=== PATIENT | female | born 1955 | race African-American/Black ===

== ENCOUNTER 2020-08-03 13:05 | Emergency (ER) | payer MEDICARE, OTHER, SELFPAY ==
--- NOTE | ~2020-08-03 | XR_ITS ---
EXAMINATION: XR ribs LT 2V INDICATION: Left-sided rib pain TECHNIQUE: 3 views of the left ribs were obtained. COMPARISON: 05/30/2016 FINDINGS: No displaced rib fracture is identified. There is no pleural effusion or pneumothorax. The visualized portions of the thorax are unremarkable. Surgical clips in the right upper quadrant are scottie ernandezy from prior cholecystectomy. IMPRESSION: 1. No acute cardiopulmonary abnormality or evidence of displaced rib fracture. Reviewed, dictated and finalized at location B.
[2020-08-03 13:17] VITALS: BP 114/63; PULSE 81; RESP 16; TEMP 36.5; O2SAT 97
--- NOTE | 2020-08-03 14:28 | ED.GENADULT ---
HPI - General Adult General Chief complaint: Trauma Stated complaint: fell left side pain Time Seen by Provider: 08/03/20 14:20 Source: patient and RN notes reviewed Mode of arrival: ambulatory Limitations: no limitations History of Present Illness HPI narrative: Patient presents today complaining of left lateral rib pain. She tripped over the wheel on her walker 2 days ago, fell, and struck the side of her ribs on the edge of her bathtub. Pain increases with movement, deep breath, and coughing. She currently rates her pain 7/10 and has been taking Advil without relief. This pain is decreased from 9/10 2 days ago. Denies shortness of breath. MD complaint: Left rib pain Related Data Home Medications Medication Instructions Recorded Confirmed Lexapro 08/03/20 Lunesta 08/03/20 alprazolam 08/03/20 amitriptyline 08/03/20 amlodipine 08/03/20 atorvastatin 08/03/20 bupropion HCl mg PO 08/03/20 epinephrine 08/03/20 escitalopram oxalate mg 08/03/20 estradiol mg 08/03/20 eszopiclone mg 08/03/20 rosuvastatin mg 08/03/20 Allergies Allergy/AdvReac Type Severity Reaction Status Date / Time cefaclor Allergy Mild Unverified 10/24/17 13:36 cefuroxime Allergy Mild Unverified 10/24/17 13:36 codeine Allergy Mild Unverified 10/24/17 13:36 Sulfa (Sulfonamide Allergy Mild Unverified 10/24/17 13:36 Antibiotics) azithromycin Allergy Unknown Verified 10/24/17 13:36 ondansetron Allergy Unknown RASH Verified 10/24/17 13:36 peanut Allergy Unknown TRIGGERS Verified 10/24/17 13:36 ASTHMA Review of Systems Review of Systems: Narrative: CONSTITUTIONAL: Denies body aches, fever, chills, or sweats. EYES: Denies visual changes, redness, or discharge. ENT: Denies rhinorrhea, congestion, sore throat, or otalgia. CARDIOVASCULAR: Denies chest pain, palpitations, or edema. RESPIRATORY: Denies cough or dyspnea. GASTROINTESTINAL: Denies abdominal pain, nausea, vomiting, or diarrhea. GENITOURINARY: Denies dysuria or hematuria. SKIN: Denies rash, itching, or wounds. MUSCULOSKELETAL: Denies back pain, joint pain, or myalgia.+ Left rib pain NEUROLOGIC: Denies headache, numbness, tingling, or weakness. PSYCH: Denies depression or anxiety. FOR[facility]LY [facility] Past Medical History Medical History (Updated 08/03/20 @ 14:32 by Claudia Hansen, BEE FARMER, ) Asthma Hyperlipidemia Hypertension Comments At time of signature, I have reviewed and agree with nursing past medical, surgical, social and family history unless otherwise noted. Please see nursing chart for further information. There is no relevant family history pertinent to the presenting complaint Exam Narrative: Exam Narrative: GENERAL: Well-appearing, well-nourished, and in no acute distress. HEAD: Normocephalic, atraumatic. EYES: EOMI. No redness or drainage. Conjunctivae normal. ENT: Mucous membranes pink and moist. NECK: Normal AROM. CHEST: No respiratory distress. Clear to auscultation. HEART: Regular rate and rhythm. No murmur appreciated. Normal peripheral pulses. ABDOMEN: Soft, nontender, nondistended, normal active bowel sounds. MUSCULOSKELETAL: Tenderness to the left lateral ribs. No crepitus or deformity noted. No edema noted. No ecchymosis noted. EXTREMITIES: Normal range of motion. No edema. SKIN: Warm, dry, no rash. Capillary refill normal. Normal skin turgor. NEURO: No focal deficits. Alert and oriented x3. Gait steady. PSYCH: Normal affect. No signs of depression or anxiety. Course Vital Signs Vital signs: Vital Signs Temperature 97.7 F 08/03/20 13:17 Pulse Rate 81 08/03/20 13:17 Respiratory Rate 16 08/03/20 13:17 Blood Pressure 114/63 08/03/20 13:17 Pulse Oximetry 97 08/03/20 13:17 Temperature 97.7 F 08/03/20 13:17 Pulse Rate 81 08/03/20 13:17 Respiratory Rate 16 08/03/20 13:17 Blood Pressure 114/63 08/03/20 13:17 Pulse Oximetry 97 08/03/20 13:17 Reviewed Medical Decision Making Differential Diag
== END 2020-08-03 14:34 | disposition home or self-care (01) ==
PROVIDERS: Emergency Provider Nurse Practitioner; PCP Internal Medicine
DX: S20.212A Contusion of left front wall of thorax, initial encounter (principal); J45.909 Unspecified asthma, uncomplicated; E78.5 Hyperlipidemia, unspecified; I10 Essential (primary) hypertension
CPT/HCPCS: 71100; 99213; G0463

== ENCOUNTER 2021-02-25 15:14 | Emergency (ER) | payer MEDICARE, OTHER, SELFPAY ==
--- NOTE | ~2021-02-25 | XR_ITS ---
EXAMINATION: XR chest 2V EXAM DATE: 02/25/2021 16:09 INDICATION: cough/sob . TECHNIQUE: Frontal and lateral projections of the chest obtained and reviewed. Comparison is made to prior examination from 08/03/2020. FINDINGS: The lungs are clear. There are no pleural effusions. The cardiomediastinal silhouette is within normal limits. There is no pneumothorax suspected. The bones and soft tissues are unremarkab le. There are cholecystectomy clips. IMPRESSION: Normal chest x-ray exam. Reviewed, dictated and finalized at location B. PTION INTERVIEWER IMPRESSION: Normal chest x-ray exam.
[2021-02-25 15:22] VITALS: BP 120/65; PULSE 103; RESP 18; TEMP 36.2; O2SAT 99
--- NOTE | 2021-02-25 15:55 | ED.URI ---
HPI - URI/Sore Throat General Chief Complaint: Upper Respiratory Infection Stated Complaint: EARS/COUGH/DIZZY/HEADACHE Time Seen by Provider: 02/25/21 15:55 Source: patient, family, RN notes reviewed and old records reviewed Mode of arrival: ambulatory Limitations: no limitations History of Present Illness HPI Narrative: 65-year-old female who presents to [facility] care with stated complaint of still not feeling well post COVID. Patient reports that she had COVID around the 31 of January and still has intermittent headaches,cough with some shortness of breath,bilateral ear pain and also some dizziness. Patient states that she has been using her inhalers, has history of asthma and also has noted some intermittent wheezing. Patient reports that she still just generally feels weak and does not have much endurance for activity. Related Data Home Medications Medication Instructions Recorded Confirmed Lexapro 08/03/20 Lunesta 08/03/20 alprazolam 08/03/20 amitriptyline 08/03/20 amlodipine 08/03/20 atorvastatin 08/03/20 bupropion HCl mg PO 08/03/20 epinephrine 08/03/20 escitalopram oxalate mg 08/03/20 estradiol mg 08/03/20 eszopiclone mg 08/03/20 rosuvastatin mg 08/03/20 Allergies Allergy/AdvReac Type Severity Reaction Status Date / Time cefaclor Allergy Mild Unverified 10/24/17 13:36 cefuroxime Allergy Mild Unverified 10/24/17 13:36 codeine Allergy Mild Unverified 10/24/17 13:36 Sulfa (Sulfonamide Allergy Mild Unverified 10/24/17 13:36 Antibiotics) azithromycin Allergy Unknown Verified 10/24/17 13:36 ondansetron Allergy Unknown RASH Verified 10/24/17 13:36 peanut Allergy Unknown TRIGGERS Verified 10/24/17 13:36 ASTHMA Review of Systems Review of Systems: CONSTITUTIONAL: Denies fever, chills, or sweats. EYES: Denies visual changes, redness, or discharge. ENT: Denies rhinorrhea, congestion, sore throat, states some bilateral otalgia with dizziness. CARDIOVASCULAR: Denies chest pain, palpitations, or edema. RESPIRATORY: Positive for cough or dyspnea. GASTROINTESTINAL: Denies abdominal pain, nausea, vomiting, or diarrhea. GENITOURINARY: Denies dysuria or hematuria. SKIN: Denies rash or itching. MUSCULOSKELETAL: Denies back pain, joint pain, or myalgia. NEUROLOGIC: Positive for frontal headaches, no numbness, or weakness. PSYCHIATRIC: Positive for history of anxiety or depression. All systems reviewed & are unremarkable except as noted in HPI and below PMFSH Past Medical History Medical History (Updated 02/25/21 @ 16:32 by Tatyana Medina NP) Anxiety and depression Arthritis Asthma Hx of migraines Hyperlipidemia Hypertension Surgical History Surgical History (Updated 02/25/21 @ 16:31 by Tatyana Medina NP) History of cholecystectomy History of hysterectomy Social History Social History (Updated 02/25/21 @ 16:39 by Tatyana Medina NP) Smoking status: Never smoker Alcohol intake: current Substance use: never Living arrangements: with family Gender identity (if verbalized by the patient): Female Comments At time of signature, agree with nursing past medical, surgical, social and family history. There is no relevant family history pertinent to the presenting complaint Exam Narrative: GENERAL: Well-appearing, well-nourished, and in no acute distress. HEAD: Normocephalic, atraumatic. EYES: PERRLA and EOMI. ENT: Nares clear, no rhinorrhea or epistaxis. Mucous membranes moist.TM's normal with dull light reflex, throat pink with no lesions or exudate with no tonsil enlargement NECK: Supple. no lymphadenopathy CHEST: Breath sounds decreased in lung bases on auscultation. No respiratory distress.respirations even and nonlabored, SAO2 99% on room air. HEART: Regular rate and rhythm. No murmur heard. Normal peripheral pulses. ABDOMEN: Soft, nontender, nondistended, normal active bowel sounds. EXTREMITIES: Normal range of motion. No edema. SKIN: Warm, dry, no rash. NE
== END 2021-02-25 16:33 | disposition home or self-care (01) ==
PROVIDERS: Emergency Provider Registered Nurse; PCP Internal Medicine
DX: J45.901 Unspecified asthma with (acute) exacerbation (principal); M19.90 Unspecified osteoarthritis, unspecified site; E78.5 Hyperlipidemia, unspecified; I10 Essential (primary) hypertension; Z86.16 Personal history of COVID-19
CPT/HCPCS: 71046; 99213; G0463

== ENCOUNTER 2021-09-21 15:08 | Emergency (ER) | payer MEDICARE, OTHER, SELFPAY ==
--- NOTE | ~2021-09-21 | XR_ITS ---
XR chest 2V 09/21/2021 15:37 Indication: Cough and shortness of breath Procedure: 2 view chest Comparison: Comparison to multiple prior studies sequentially, with oldest reviewed study dated 08/2015. Findings: Heart size normal. Right basilar airspace disease, suspicious for pneumonia. No pleural eff usion, edema or pneumothorax. Impression: 1: Right basilar airspace disease may represent atelectasis and/or pneumonia. Reviewed, dictated and finalized at location B. Impression: 1: Right basilar airspace disease may represent atelectasis and/or pneumonia.
[2021-09-21 15:14] VITALS: BP 104/81; PULSE 95; RESP 20; TEMP 36.2; O2SAT 100
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
== END 2021-09-21 15:52 | disposition home or self-care (01) ==
PROVIDERS: Emergency Provider Nurse Practitioner; PCP Internal Medicine
DX: J18.9 Pneumonia, unspecified organism (principal); M19.90 Unspecified osteoarthritis, unspecified site; J45.909 Unspecified asthma, uncomplicated; E78.5 Hyperlipidemia, unspecified; I10 Essential (primary) hypertension
CPT/HCPCS: 71046; 99213; G0463

== ENCOUNTER 2022-07-07 15:19 | Emergency (ER) | payer MEDICARE, OTHER, SELFPAY ==
--- NOTE | ~2022-07-07 | XR_ITS ---
EXAMINATION: XR chest 2V DATE: 07/07/2022 16:25 INDICATION: Shortness of breath. TECHNIQUE: Frontal and lateral views of the chest were obtained. COMPARISON: Chest 2 views 09/21/2021 FINDINGS: There is mild atelectasis in left lower lung zone. No pleural effusion or pneumothorax. The heart size is normal. Surgical clips in the right upper quadrant are likely from cholecystectomy. IMPRESSION: 1. Mild atelectasis in left lower lung zone. Reviewed, dictated and finalized at location A.
--- NOTE | 2022-07-07 15:28 | ED.SOB ---
HPI - SOB/Dyspnea General Chief Complaint: Shortness of Breath/Dyspnea Stated Complaint: SOB Time Seen by Provider: 07/07/22 16:01 Source: patient and RN notes reviewed Mode of arrival: ambulatory Limitations: no limitations History of Present Illness HPI Narrative: 67-year-old female with history of interstitial lung disease presents with concern for shortness of breath. She reports she has been using her albuterol inhaler or nebulizer 2 to 3 times a day without much relief of symptoms. She reports she just finished steroid course prescribed by her doctor. Reports she reports her doctor wanted her to come in to get a COVID test and chest x-ray. She denies fever, however reports she had night sweats the last couple of nights. MD elicited complaint: shortness of breath Related Data Home Medications Medication Instructions Recorded Confirmed alprazolam 0.25 mg tablet 0.25 mg PO DAILY 08/03/20 07/07/22 amitriptyline 50 mg tablet 50 mg PO DAILY 08/03/20 07/07/22 amlodipine 5 mg tablet 5 mg PO DAILY 08/03/20 07/07/22 bupropion HCl 300 mg 24 hr tablet, 300 mg PO DAILY 08/03/20 07/07/22 extended release epinephrine 0.3 mg/0.3 mL 0.3 mg IM PRN PRN Allergic Reaction 08/03/20 07/07/22 injection, auto-injector escitalopram oxalate 20 mg tablet 20 mg PO DAILY 08/03/20 07/07/22 estradiol 1 mg tablet 1 mg PO DAILY 08/03/20 07/07/22 eszopiclone 3 mg tablet 3 mg PO DAILY 08/03/20 07/07/22 budesonide-formoterol HFA 80 1 inh inhalation ONCE 07/07/22 07/07/22 mcg-4.5 mcg/actuation aerosol inhaler (Symbicort) esomeprazole magnesium 20 mg 20 mg PO DAILY 07/07/22 07/07/22 capsule,delayed release (Nexium 24HR) Allergies Allergy/AdvReac Type Severity Reaction Status Date / Time azithromycin Allergy Mild Other Verified 07/07/22 16:11 cefaclor Allergy Mild Other Verified 07/07/22 15:31 cefuroxime Allergy Mild Other Verified 07/07/22 15:31 codeine Allergy Mild Other Verified 07/07/22 15:31 levofloxacin [From Levaquin] Allergy Mild Other Verified 07/07/22 16:11 ondansetron Allergy Mild RASH Verified 07/07/22 16:11 peanut Allergy Mild TRIGGERS Verified 07/07/22 16:11 ASTHMA Sulfa (Sulfonamide Allergy Mild Other Verified 07/07/22 15:31 Antibiotics) Review of Systems Review of Systems: CONSTITUTIONAL: Denies malaise, chills, sweats, or fever. EYES: Denies visual changes, redness, or discharge. ENT: Denies rhinorrhea, congestion, sinus pain, otalgia and sore throat. CARDIOVASCULAR: Denies chest pain, palpitations, or edema. RESPIRATORY: Reports cough, dyspnea. GASTROINTESTINAL: Denies abdominal pain, nausea, vomiting, diarrhea SKIN: Denies rash or itching. MUSCULOSKELETAL: Denies myalgia. NEUROLOGIC: Denies headache. All systems reviewed & are unremarkable except as noted in HPI and below PMFSH Past Medical History Medical History (Updated 07/07/22 @ 16:51 by Sona Gonzáles NP) Anxiety and depression Arthritis Asthma Hx of migraines Hyperlipidemia Hypertension Surgical History Surgical History (Updated 02/25/21 @ 16:31 by Tatyana Medina NP) History of cholecystectomy History of hysterectomy Social History Social History (Updated 02/25/21 @ 16:39 by Tatyana Medina NP) Smoking status: Never smoker Alcohol intake: current Substance use: never Living arrangements: with family Gender identity (if verbalized by the patient): Female Comments At time of signature, agree with nursing past medical, surgical, social and family history. There is no relevant family history pertinent to the presenting complaint Exam Narrative: GENERAL: Well-appearing, well-nourished, and in no acute distress. HEAD: Normocephalic EYES: PERRLA, conjunctivae clear ENT: Nares clear. Mucous membranes moist. TM pearly jon with dull light reflex bilaterally; no tragal tenderness. Oropharynx not erythematous without lesions. Tonsils not enlarged and without exudate, no drooling, no hoarseness, no trismus, uvula
[2022-07-07 15:29] VITALS: BP 126/70; PULSE 108; RESP 16; TEMP 36.4; O2SAT 99
== END 2022-07-07 17:16 | disposition home or self-care (01) ==
PROVIDERS: Emergency Provider Nurse Practitioner; PCP Internal Medicine
DX: J98.11 Atelectasis (principal); Z20.822 Contact with and (suspected) exposure to COVID-19; M19.90 Unspecified osteoarthritis, unspecified site; J45.909 Unspecified asthma, uncomplicated; E78.5 Hyperlipidemia, unspecified; I10 Essential (primary) hypertension; F41.9 Anxiety disorder, unspecified; F32.A Depression, unspecified
CPT/HCPCS: 71046; 87426; 99213; C9803; G0463

== ENCOUNTER 2022-08-22 17:50 | Emergency (ER) | payer MEDICARE, OTHER, SELFPAY ==
--- NOTE | ~2022-08-22 | XR_ITS ---
EXAMINATION: XR ribs LT 2V w CXR 2V Exam Date/Time: 08/22/2022 18:05 CDT HISTORY: ant/lateral left rib pain s/p fall x 2 days ago Comparison: 07/07/2022. RESULT: Lines, tubes, and devices: Cholecystectomy clips. Lungs and pleura: Patchy airspace disease in the left mid and lower lung. Cardiothymic silhouette: Stable. Other: No acute osseous or upper abdominal finding. IMPRESSION: Left mid and lower lung airspace disease, concerning for pneumonia. No rib fracture detected. Reviewed, dictated and finalized at location K. IMPRESSION: Left mid and lower lung airspace disease, concerning for pneumonia. No rib frac ture detected.
--- NOTE | 2022-08-22 17:54 | ED.SOB ---
HPI - SOB/Dyspnea General Chief Complaint: Fall Stated Complaint: shortness of breath, chest tightness Time Seen by Provider: 08/22/22 17:53 Source: patient Mode of arrival: ambulatory Limitations: no limitations History of Present Illness HPI Narrative: Amelia is a 67-year-old female patient presenting to the clinic today with complaints of shortness of breath and chest tightness/discomfort. She reports that symptoms started after she fell on Sunday. She reports that she slipped on a cane and landed on a suitcase. Is having left-sided chest discomfort pain around her left breast and discomfort with taking a deep breath. She is also reporting some pain in her midback. Related Data Home Medications Medication Instructions Recorded Confirmed alprazolam 0.25 mg tablet 0.25 mg PO DAILY 08/03/20 07/07/22 amitriptyline 50 mg tablet 50 mg PO DAILY 08/03/20 07/07/22 amlodipine 5 mg tablet 5 mg PO DAILY 08/03/20 07/07/22 bupropion HCl 300 mg 24 hr tablet, 300 mg PO DAILY 08/03/20 07/07/22 extended release epinephrine 0.3 mg/0.3 mL 0.3 mg IM PRN PRN Allergic Reaction 08/03/20 07/07/22 injection, auto-injector escitalopram oxalate 20 mg tablet 20 mg PO DAILY 08/03/20 07/07/22 estradiol 1 mg tablet 1 mg PO DAILY 08/03/20 07/07/22 eszopiclone 3 mg tablet 3 mg PO DAILY 08/03/20 07/07/22 budesonide-formoterol HFA 80 1 inh inhalation ONCE 07/07/22 07/07/22 mcg-4.5 mcg/actuation aerosol inhaler (Symbicort) esomeprazole magnesium 20 mg 20 mg PO DAILY 07/07/22 07/07/22 capsule,delayed release (Nexium 24HR) Allergies Allergy/AdvReac Type Severity Reaction Status Date / Time azithromycin Allergy Mild Other Verified 08/22/22 17:55 cefaclor Allergy Mild Other Verified 08/22/22 17:55 cefuroxime Allergy Mild Other Verified 08/22/22 17:55 codeine Allergy Mild Other Verified 08/22/22 17:55 levofloxacin [From Levaquin] Allergy Mild Other Verified 08/22/22 17:55 ondansetron Allergy Mild RASH Verified 08/22/22 17:55 peanut Allergy Mild TRIGGERS Verified 08/22/22 17:55 ASTHMA Sulfa (Sulfonamide Allergy Mild Other Verified 08/22/22 17:55 Antibiotics) Review of Systems Review of Systems: Pertinent positives per HPI. Patient denies any fever, chills, rash, headache, visual changes, dizziness, cough, runny nose, sore throat, shortness of breath, chest pain, palpitations, nausea, vomiting, diarrhea, constipation, abdominal pain, or any urinary issues. [facility] Past Medical History Medical History Anxiety and depression Arthritis Asthma Hx of migraines Hyperlipidemia Hypertension Surgical History Surgical History History of cholecystectomy History of hysterectomy Social History Social History Smoking status: Never smoker Alcohol intake: current Substance use: never Living arrangements: with family Gender identity (if verbalized by the patient): Female Comments At the time of my signature, I reviewed and agree with the nursing past medical, surgical, social, and family history. There is no relevant family history pertinent to the patient complaint. Exam Narrative: General: Well-developed, obese, in no apparent distress Head: Normocephalic, atraumatic. Cardio: Regular rate and rhythm, s1 and s2 normal, no murmur appreciated. Resp: Faint crackles in the left lower lung [place] otherwise clear, no rhonchi, wheezing or rubs. Musculoskeletal: No deformity, tender to palpation over the left anterior and lateral chest wall, mild discomfort with deep inspiration, grossly normal range of motion, muscle strength strong and equal, peripheral pulse strong, no edema, no cyanosis, normal gait and station Course Course Emergency Course: Portions of this record may have been created with voice recognition software. Level o
[2022-08-22 18:04] VITALS: BP 136/68; PULSE 104; RESP 16; TEMP 37.2; O2SAT 100
--- NOTE | 2022-08-22 18:05 | ECG_ITS ---
Measurements Intervals [place] Rate: 98 P: 55 VT: 154 QRS: 55 QRSD: 79 T: 9 QT: 315 QTc: 402 Interpretive Statements SINUS RHYTHM POSSIBLE LEFT ATRIAL ENLARGEMENT CANNOT RULE OUT SEPTAL INFARCT, AGE INDETERMINATE BORDERLINE ST-T WAVE ABNORMALITY- DIFFUSE LEADS BASELINE ARTIFACT- II, III, AVR, AVF ABNORMAL ECG NO PREVIOUS ECG AVAILABLE FOR COMPARISON Electronically Signed On 08-23-2022 6:44:55 CDT by Juan Manuel Krause D.O.
== END 2022-08-22 18:42 | disposition home or self-care (01) ==
PROVIDERS: Emergency Provider Nurse Practitioner Family; PCP Internal Medicine
DX: J18.1 Lobar pneumonia, unspecified organism (principal); F41.9 Anxiety disorder, unspecified; F32.A Depression, unspecified; M19.90 Unspecified osteoarthritis, unspecified site; E78.5 Hyperlipidemia, unspecified; I10 Essential (primary) hypertension
CPT/HCPCS: 71046; 71100; 93005; 99213; G0463

== ENCOUNTER 2022-09-01 13:35 | Emergency (ER) | payer MEDICARE, OTHER, SELFPAY ==
--- NOTE | ~2022-09-01 | XR_ITS ---
EXAMINATION: XR chest 2V 09/01/2022 14:04 INDICATION: Dyspnea PROCEDURE: 2 view chest COMPARISON: Comparison to multiple prior studies sequentially, with oldest reviewed study dated 02/25. FINDINGS: The lungs are clear. The cardiomediastinal silhouette is within normal limits. There are no pleural effusions. There is no pneumothorax suspected. IMPRESSION: 1: NO ACUTE CARDIOPULMONARY DISEASE. Reviewed, dictated and finalized at location A.
[2022-09-01 13:44] VITALS: BP 116/70; PULSE 95; RESP 16; TEMP 36.6; O2SAT 100
--- NOTE | 2022-09-01 13:58 | ED.URI ---
HPI - URI/Sore Throat General Chief Complaint: Upper Respiratory Infection Stated Complaint: Sinus Time Seen by Provider: 09/01/22 13:58 Source: patient Mode of arrival: ambulatory Limitations: no limitations History of Present Illness HPI Narrative: 67-year-old female presents with complaint of fatigue. Patient is in [facility] 08/22 and diagnosed with pneumonia. Patient reports that she completed her antibiotics and would like a repeat chest x-ray. Patient has history of interstitial lung disease. Last saw her rn surgery August 11. Denies coughing. afebrile. patient's primary care physician is in [place]. States she will not see him until October or November of this year. Does not have a primary care physician in [place] but she does reside here. All systems reviewed and negative except as noted above. Related Data Home Medications Medication Instructions Recorded Confirmed alprazolam 0.25 mg tablet 0.25 mg PO DAILY 08/03/20 07/07/22 amitriptyline 50 mg tablet 50 mg PO DAILY 08/03/20 07/07/22 amlodipine 5 mg tablet 5 mg PO DAILY 08/03/20 07/07/22 bupropion HCl 300 mg 24 hr tablet, 300 mg PO DAILY 08/03/20 07/07/22 extended release epinephrine 0.3 mg/0.3 mL 0.3 mg IM PRN PRN Allergic Reaction 08/03/20 07/07/22 injection, auto-injector escitalopram oxalate 20 mg tablet 20 mg PO DAILY 08/03/20 07/07/22 estradiol 1 mg tablet 1 mg PO DAILY 08/03/20 07/07/22 eszopiclone 3 mg tablet 3 mg PO DAILY 08/03/20 07/07/22 budesonide-formoterol HFA 80 1 inh inhalation ONCE 07/07/22 07/07/22 mcg-4.5 mcg/actuation aerosol inhaler (Symbicort) esomeprazole magnesium 20 mg 20 mg PO DAILY 07/07/22 07/07/22 capsule,delayed release (Nexium 24HR) Inhaler, Mixed With 3 Meds. 09/01/22 Allergies Allergy/AdvReac Type Severity Reaction Status Date / Time azithromycin Allergy Mild Other Verified 09/01/22 13:40 cefaclor Allergy Mild Other Verified 09/01/22 13:40 cefuroxime Allergy Mild Other Verified 09/01/22 13:40 codeine Allergy Mild Other Verified 09/01/22 13:40 levofloxacin [From Levaquin] Allergy Mild Other Verified 09/01/22 13:40 ondansetron Allergy Mild RASH Verified 09/01/22 13:40 peanut Allergy Mild TRIGGERS Verified 09/01/22 13:40 ASTHMA Sulfa (Sulfonamide Allergy Mild Other Verified 09/01/22 13:40 Antibiotics) Review of Systems Review of Systems: CONSTITUTIONAL: Denies fever, chills, or sweats. Reports fatigue. EYES: Denies visual changes, redness, or discharge. ENT: Denies rhinorrhea, congestion, sore throat, or otalgia. CARDIOVASCULAR: Denies chest pain, palpitations, or edema. RESPIRATORY: Denies cough or dyspnea. GASTROINTESTINAL: Denies abdominal pain, nausea, vomiting, or diarrhea. GENITOURINARY: Denies dysuria or hematuria. SKIN: Denies rash or itching. MUSCULOSKELETAL: Denies back pain, joint pain, or myalgia. NEUROLOGIC: Denies headache, numbness, or weakness. PSYCHIATRIC: Denies anxiety or depression. All other systems reviewed are negative, except as documented in HPI. [facility] Past Medical History Medical History Anxiety and depression Arthritis Asthma Hx of migraines Hyperlipidemia Hypertension Surgical History Surgical History History of cholecystectomy History of hysterectomy Social History Social History Smoking status: Never smoker Alcohol intake: current Substance use: never Living arrangements: with family Gender identity (if verbalized by the patient): Female Comments At time of signature, agree with nursing past medical, surgical, social and family history. There is no relevant family history pertinent to the presenting complaint. Exam Narrative: GENERAL: This is a well-nourished, well-developed patient, in no apparent distress. HEAD: normocephalic, a
== END 2022-09-01 14:31 | disposition home or self-care (01) ==
PROVIDERS: Emergency Provider Nurse Practitioner Family; PCP Internal Medicine
DX: R53.83 Other fatigue (principal); M19.90 Unspecified osteoarthritis, unspecified site; J45.909 Unspecified asthma, uncomplicated; E78.5 Hyperlipidemia, unspecified; I10 Essential (primary) hypertension; J84.9 Interstitial pulmonary disease, unspecified
CPT/HCPCS: 71046; 99213; G0463